=== PATIENT | male | born 1980 | race Caucasian/White ===

== ENCOUNTER 2024-01-31 00:37 | Inpatient (IN) | payer BC, SELFPAY ==
[2024-01-31 01:23] LABS: Actual Bicarbonate (HCO3v) 19.1 mEq/L (22-28); Analyzer IN Cardio CS ER; Calcium, Ionized (venous) 1.11 mmol/L (1.16-1.32); Chloride (VBG) 102 mmol/L (98-106); Critical Notified By: CP.PH; Hematocrit-VBG 36 % (42.0-52.0); Hemoglobin (Hb) 12.4 g/dL (13.2-17.3); Potassium (VBG) 3.63 mmol/L (3.70-5.30); Puncture Site Other Site; Sodium 136 mmol/L (133-146); pH (venous) 7.384 (7.32-7.43)
[2024-01-31 01:29] LABS: Bilirubin Neg (Negative); Blood, Urine Negative (Negative); Clarity Clear (Clear); Glucose, Urine (Dipstick) >=1000 mg/dL (Negative); Ketone, Urine Negative (Negative); Leukocyte Negative (Negative); Nitrite Negative (Negative); Protein, Urine (Dipstick) Negative (Neg-Trace); Urobilinogen Normal mg/dL (Less than 2)
[2024-01-31 01:29] LABS: #Basophils 0.06 10x3/uL (0.0-0.2); #Eosinophils 0.05 10x3/uL (0.0-0.5); #Monocytes 0.59 10x3/uL (0.0-1.1); #Neutrophils 3.24 10x3/uL (1.5-8.4); %Basophils 1.1 % (0.0-2.0); %Eosinophils 0.9 % (0.0-6.0); %Lymphocytes 27.3 % (18.0-47.0); %Monocytes 10.7 % (0.0-10.0); %Neutrophils 58.9 % (40.0-75.0); Hematocrit 33.6 % (38.8-50.0); Hemoglobin 11.2 g/dL (13.5-17.5); Mean Corpuscular HGB CONC 33.3 g/dL (32.0-36.0); Mean Corpuscular Hemoglobin 33.3 pg (27.0-33.0); RBC Distribution Width 18.9 % (11.5-14.5); Red Blood Cell (RBC) Count 3.36 10x6/uL (4.32-5.72); White Blood Cell (WBC) Count 5.5 10x3/uL (3.5-10.5)
[2024-01-31 01:37] LABS: Amphetamine Not Detected (NotDetected); Barbiturates Screen Not Detected (NotDetected); Benzodiazepine Screen Not Detected (NotDetected); Cocaine Metabolite Screen Not Detected (NotDetected); Methadone Not Detected (NotDetected); Methamphetamine Not Detected (NotDetected); Opiate Screen Not Detected (NotDetected); Oxycodone Screen Not Detected (NotDetected); Phencyclidine (PCP) Not Detected (NotDetected); THC/Cannabinoid Screen Not Detected (NotDetected); Tricyclic Screen Detected (NotDetected)
[2024-01-31 01:41] LABS: ALT (SGPT) 102 U/L (8-55); AST (SGOT) 117 U/L (5-34); Albumin 2.8 g/dL (3.5-5.0); Alkaline Phosphatase 102 U/L (40-110); Anion Gap 17 mmol/L (10-20); BUN (Urea Nitrogen) 17 mg/dL (8.9-20.6); Bilirubin, Total 0.7 mg/dL (0.2-1.2); Calc. Creatinine Clearance 0 mL/min (70-130); Calcium 9.4 mg/dL (7.8-10.44); Carbon Dioxide 19 mmol/L (22-29); Chloride 103 mmol/L (98-107); Estimated GFR 98; Globulin 3.4 g/dL (2.4-3.5); Magnesium 1.8 mg/dL (1.6-2.6); Potassium 3.7 mmol/L (3.5-5.1); Protein, Total 6.2 g/dL (6.0-8.3); Sodium 135 mmol/L (136-145)
[2024-01-31 01:44] LABS: Troponin I Less than 0.010 ng/mL (< 0.028)
[2024-01-31 01:45] LABS: Critical Call Chemistry ERS.RR1@0144/JG2/WITHREADBACK; Glucose 416 mg/dL (70-105)
[2024-01-31 01:53] LABS: Mean Platelet Volume 10.3 fL (7.4-10.4); Platelet Count 75 10x3/uL (150-450)
[2024-01-31 01:54] LABS: Platelet Adequacy Comment Appears Decreased
[2024-01-31 01:55] LABS: Anisocytosis SLIGHT = 6-15 cells (100X) (0-5/hpf); Macrocytosis SLIGHT = 6-15 cells (100X) (0-5/hpf); Ovalocytes SLIGHT = 2-5 cells (100X) (0-1/hpf)
[2024-01-31] MEDS ORDERED: Lactulose 20 GM (30 mL) UDCUP ONE (01:56)
[2024-01-31 02:03] LABS: Bacteria/HPF Rare-Few HPF (None Seen); CAUTI Indications for Culture Pelvic or flank pain; RBC/HPF 0-3 HPF (0-3); Squamous Epithelial 0-3 HPF (0-3); WBC/HPF 0-3 HPF (0-3)
[2024-01-31 02:04] LABS: Urine Culture Reflex No No
[2024-01-31 02:18] LABS: Acetaminophen Less than 10 mcg/mL (Less than 10); Alcohol 68.2 mg/dL (Less than 10); Salicylate Less than 8.0 mg/dL (Less than 8.0)
[2024-01-31] MEDS ORDERED: Glucagon 1 MG/ML KIT IM PRN (03:28)
[2024-01-31] MEDS ORDERED: Dextrose 5% in Water 1,000 ML IV PRN (03:28)
[2024-01-31] MEDS ORDERED: Calcium Carbonate 500 MG ChewTAB PO PRN (03:28)
[2024-01-31] MEDS ORDERED: Dextrose 50% Abboject 50 ML SYRINGE SLOW IVP PRN (03:28)
[2024-01-31] MEDS ORDERED: Acetaminophen 325 MG TAB PO PRN (03:28)
[2024-01-31] MEDS ORDERED: Ondansetron PF 4 MG/2 ML Vial IVP PRN (03:28)
[2024-01-31 04:12] VITALS: BMI 21.9
[2024-01-31] MEDS: Sodium Chloride 0.9% 500 ML IV SCH (04:49)
[2024-01-31] MEDS: Thiamine HCl 200 MG/2 ML VIAL SLOW IVP SCH (04:49)
[2024-01-31] MEDS: Magnesium Sulfate/D5W 1 GM/100 ML BAG IVPB SCH (04:49)
[2024-01-31] MEDS: Albumin 25% 25 GM (100 mL) BOT IVPB SCH (04:49)
[2024-01-31] MEDS: Potassium Chloride 20 MEQ TAB PO SCH (04:57)
[2024-01-31] MEDS: Insulin Lispro 100 UNIT/ML 10 ML VIAL SC PRN (05:12)
[2024-01-31] MEDS ORDERED: Lactulose 20 GM (30 mL) UDCUP PO SCH (06:00)
[2024-01-31 06:14] LABS: #Basophils 0.05 10x3/uL (0.0-0.2); #Eosinophils 0.04 10x3/uL (0.0-0.5); #Monocytes 0.57 10x3/uL (0.0-1.1); #Neutrophils 2.98 10x3/uL (1.5-8.4); %Eosinophils 0.8 % (0.0-6.0); %Lymphocytes 24.1 % (18.0-47.0); %Monocytes 11.9 % (0.0-10.0); Hematocrit 35.5 % (38.8-50.0); Hemoglobin 11.4 g/dL (13.5-17.5); Mean Corpuscular HGB CONC 32.1 g/dL (32.0-36.0); Mean Corpuscular Hemoglobin 32.3 pg (27.0-33.0); Mean Corpuscular Volume 100.6 fL (81.2-95.1); RBC Distribution Width 19.2 % (11.5-14.5); Red Blood Cell (RBC) Count 3.53 10x6/uL (4.32-5.72); White Blood Cell (WBC) Count 4.8 10x3/uL (3.5-10.5)
[2024-01-31 06:15] LABS: Mean Platelet Volume 10.6 fL (7.4-10.4); Platelet Count 71 10x3/uL (150-450)
[2024-01-31 06:19] LABS: PTT 23.6 sec (22.0-33.0); Prothrombin Time 10.6 sec (9.5-12.1)
[2024-01-31 06:24] LABS: ALT (SGPT) 98 U/L (8-55); AST (SGOT) 111 U/L (5-34); Albumin 2.7 g/dL (3.5-5.0); Alkaline Phosphatase 100 U/L (40-110); Anion Gap 10 mmol/L (10-20); BUN (Urea Nitrogen) 14 mg/dL (8.9-20.6); Bilirubin, Total 0.9 mg/dL (0.2-1.2); Calc. Creatinine Clearance 118 mL/min (70-130); Calcium 9.2 mg/dL (7.8-10.44); Carbon Dioxide 24 mmol/L (22-29); Chloride 107 mmol/L (98-107); Estimated GFR 111; Globulin 3.7 g/dL (2.4-3.5); Glucose 277 mg/dL (70-105); Potassium 3.4 mmol/L (3.5-5.1); Protein, Total 6.4 g/dL (6.0-8.3); Sodium 138 mmol/L (136-145)
[2024-01-31] MEDS: Pantoprazole DR 40 MG TAB PO SCH (08:43)
[2024-01-31] MEDS: metFORMIN 500 MG TAB PO SCH (08:43)
[2024-01-31] MEDS: Folic Acid 1 MG TAB PO SCH (08:43)
[2024-01-31] MEDS: glyBURIDE 5 MG TAB PO SCH (08:44)
[2024-01-31] MEDS: Multivit, Therapeutic 1 TAB PO SCH (08:44)
[2024-01-31] MEDS: Lactulose 20 GM (30 mL) UDCUP PO SCH (08:44)
[2024-01-31] MEDS: Lantus 1000 UNITS/10 ML VIAL SC SCH (08:45)
[2024-01-31] MEDS: Rifaximin 550 MG TAB PO SCH (08:47)
[2024-01-31 12:57] VITALS: BP 125/81; TEMP 97.6
[2024-01-31 13:23] LABS: Hemoglobin A1c 11.2 % (4.0-6.0)
== END 2024-01-31 15:12 | DRG 442 ==
LOC: CSHERS 00:37 → CSHTELE 03:28
PROVIDERS: ADMIT Student in an Organized Health Care Education/Training Program; ATTEND Internal Medicine
DX: K76.82 Hepatic encephalopathy (principal); Z59.00 Homelessness unspecified; F15.10 Other stimulant abuse, uncomplicated; E11.65 Type 2 diabetes mellitus with hyperglycemia; K70.30 Alcoholic cirrhosis of liver without ascites; D69.6 Thrombocytopenia, unspecified; E88.09 Other disorders of plasma-protein metabolism, not elsewhere classified; F10.10 Alcohol abuse, uncomplicated; Z79.899 Other long term (current) drug therapy
CPT/HCPCS: 36415; 36416; 70450; 71045; 76705; 80053; 80178; 80306; 80307; 81001; 82140; 82805; 83036; 83735; 83880; 84484; 85025; 85610; 85730; 93005; 93970; 94762; J1815; J3411; J3475; J7030; P9047

== ENCOUNTER 2024-02-13 18:26 | Emergency (ER) | payer BC ==
[2024-02-13 19:46] LABS: Actual Bicarbonate (HCO3v) 26.3 mEq/L (22-28); Analyzer IN Cardio CS ER; Base Excess 1.1 mEq/L (-2 - +2); Calcium, Ionized (venous) 1.32 mmol/L (1.16-1.32); Chloride (VBG) 96 mmol/L (98-106); Critical Notified By: CP.PH; Hematocrit-VBG 42 % (42.0-52.0); Hemoglobin (Hb) 14.2 g/dL (13.2-17.3); Potassium (VBG) 5.12 mmol/L (3.70-5.30); Puncture Site Other Site; RapidComm Collect By ERS.CCF; Sodium 133 mmol/L (133-146); pH (venous) 7.393 (7.32-7.43)
[2024-02-13 20:12] LABS: Bilirubin Neg (Negative); Blood, Urine 10 (Negative); Glucose, Urine (Dipstick) >=1000 mg/dL (Negative); Ketone, Urine Negative (Negative); Leukocyte 25 (Negative); Nitrite Negative (Negative); Protein, Urine (Dipstick) Negative (Neg-Trace); Urobilinogen Normal mg/dL (Less than 2)
[2024-02-13 20:14] LABS: #Basophils 0.06 10x3/uL (0.0-0.2); #Eosinophils 0.21 10x3/uL (0.0-0.5); #Monocytes 0.69 10x3/uL (0.0-1.1); #Neutrophils 3.83 10x3/uL (1.5-8.4); %Eosinophils 3.5 % (0.0-6.0); %Lymphocytes 20.7 % (18.0-47.0); %Monocytes 11.3 % (0.0-10.0); Hematocrit 38.1 % (38.8-50.0); Hemoglobin 13.1 g/dL (13.5-17.5); Mean Corpuscular HGB CONC 34.4 g/dL (32.0-36.0); Mean Corpuscular Hemoglobin 33.4 pg (27.0-33.0); Mean Corpuscular Volume 97.2 fL (81.2-95.1); Mean Platelet Volume 10.3 fL (7.4-10.4); Platelet Count 136 10x3/uL (150-450); RBC Distribution Width 15.8 % (11.5-14.5); Red Blood Cell (RBC) Count 3.92 10x6/uL (4.32-5.72); White Blood Cell (WBC) Count 6.1 10x3/uL (3.5-10.5)
[2024-02-13 20:14] LABS: Clarity Hazy (Clear)
[2024-02-13 20:25] LABS: ALT (SGPT) 76 U/L (8-55); AST (SGOT) 64 U/L (5-34); Albumin 3.2 g/dL (3.5-5.0); Alkaline Phosphatase 171 U/L (40-110); Anion Gap 13 mmol/L (10-20); BUN (Urea Nitrogen) 25 mg/dL (8.9-20.6); Bilirubin, Total 0.9 mg/dL (0.2-1.2); CK (CPK) 69 U/L (30-200); Calc. Creatinine Clearance 0 mL/min (70-130); Carbon Dioxide 23 mmol/L (22-29); Chloride 95 mmol/L (98-107); Estimated GFR 71; Globulin 4.1 g/dL (2.4-3.5); Potassium 5.1 mmol/L (3.5-5.1); Protein, Total 7.3 g/dL (6.0-8.3); Sodium 126 mmol/L (136-145)
[2024-02-13 20:26] LABS: Acetaminophen Less than 10 mcg/mL (Less than 10); Alcohol Less than 10.0 mg/dL (Less than 10); Lipase 95 U/L (8-78); Magnesium 1.8 mg/dL (1.6-2.6); Salicylate Less than 8.0 mg/dL (Less than 8.0)
[2024-02-13 20:33] LABS: Bacteria/HPF Rare-Few HPF (None Seen); CAUTI Indications for Culture Alt mental st,lethar; RBC/HPF 0-3 HPF (0-3); Squamous Epithelial 0-3 HPF (0-3)
[2024-02-13 20:34] LABS: Urine Culture Reflex No No
[2024-02-13 20:37] LABS: Glucose 760 mg/dL (70-105)
[2024-02-13] MEDS ORDERED: Insulin Regular, Human 100 UNIT/ML 10 ML VIAL ONE (22:00)
== END 2024-02-13 23:05 | disposition home or self-care (01) ==
LOC: CSHERS 18:26
DX: E11.65 Type 2 diabetes mellitus with hyperglycemia (principal); R74.01 Elevation of levels of liver transaminase levels; F17.210 Nicotine dependence, cigarettes, uncomplicated; Z79.4 Long term (current) use of insulin
CPT/HCPCS: 36416; 70450; 80053; 80307; 81001; 82010; 82550; 82805; 83690; 83735; 85025; 93005; 96374; J1815